=== PATIENT | female | born 1985 | race Caucasian/White ===

== ENCOUNTER 2016-07-17 16:18 | Emergency (ER) | payer MEDICAID ==
--- NOTE | 2016-07-17 16:56 | EDPHY ---
H & P Time Seen by Provider: 07/17/16 16:26 HPI/ROS: CHIEF COMPLAINT: Right wrist pain HISTORY OF PRESENT ILLNESS: 30-year-old female presents emergency department complaining of right wrist pain x1 week. Patient states she thinks she may have hit it on something at work. Pain is worse with range of motion, achy in nature with occasional sharp pains, ice alleviates her pain minimally. She is [id number], works at [employer] using her hands. She denies numbness or tingling in her hands, no previous injury to this hand. Patient was just seen at [facility] and had an x-ray that was negative, she states that she was not happy with their care. Smoking Status: Current every day smoker Physical Exam: GEN: Awake, alert, oriented, no acute distress RESP: nl resp effort MSK: Right wrist with no swelling, tenderness to palpation over 1st dorsal compartment, positive Germain, 2+ radial pulses, sensation intact to light touch, cap refill less than 2 seconds, no tenderness over distal radius or ulnar styloid SKIN: No break in skin Constitutional: Initial Vital Signs Temperature (C) 36.5 C 07/17/16 16:22 Heart Rate 82 07/17/16 16:22 Respiratory Rate 17 07/17/16 16:22 Blood Pressure 117/77 07/17/16 16:22 O2 Sat (%) 99 07/17/16 16:22 Allergies/Adverse Reactions: No Known Allergies Allergy (Verified 07/17/16 16:20) Home Medications: Medication Instructions Recorded NK [No Known Home Meds] 07/17/16 MDM/Departure - Depart Disposition: Home, Routine, Self-Care Clinical Impression: De Quervain's tenosynovitis Condition: Good Instructions: De Quervain Disease (ED) Additional Instructions: Rest, ice, elevate, take 600mg of ibuprofen every 8 hours with food for 3-5 days as needed for pain and swelling. Wear Velcro wrist splint. Follow up with the hand doctor for symptoms that are not improving in the next 7-10 days. Return to the emergency department for any numbness, tingling, discoloration of you limb or other concerns. Referrals: Vasile Shah MD [Medical Doctor] - As per Instructions (Hand doctor on-call)
[2016-07-17 17:06] VITALS: BP 117/74; PULSE 86; RESP 16; TEMP 98.2; O2SAT 95
== END 2016-07-17 17:06 | disposition home or self-care (01) ==
DX: M65.4 Radial styloid tenosynovitis [de Quervain] (principal); F17.200 Nicotine dependence, unspecified, uncomplicated
CPT/HCPCS: L3807

== ENCOUNTER 2017-10-07 11:10 | Emergency (ER) | payer MEDICAID ==
[2017-10-07 11:14] VITALS: BP 113/60
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
== END 2017-10-07 11:45 | disposition home or self-care (01) ==
DX: S93.411A Sprain of calcaneofibular ligament of right ankle, initial encounter (principal); F17.200 Nicotine dependence, unspecified, uncomplicated; V78.4XXA Person boarding or alighting from bus injured in noncollision transport accident, initial encounter; Y99.8 Other external cause status; Y93.89 Activity, other specified
CPT/HCPCS: L4350